=== PATIENT | female | born 1955 | race Caucasian/White ===

== ENCOUNTER 2017-12-26 09:03 | Day surgery (SDC) | payer OTHER ==
[~2017-12-26 09:03] MED LIST: Metoclopramide 10 MG/2 ML SDV IV PRN; Sodium Chloride 0.9% 10 ML Syringe FLUSH PRN
[2017-12-26] MEDS ORDERED: Propofol 1,000 MG/100 ML SDV ONE (12:45)
[2017-12-26] MEDS ORDERED: Midazolam 1 MG/ML 5 ML SDV ONE (12:45)
--- NOTE | 2017-12-26 13:48 | OR ---
DATE OF OPERATION: 12/26/2017 PREOPERATIVE DIAGNOSIS: Screening colonoscopy. POSTOPERATIVE DIAGNOSIS: Moderate to severe diverticulosis of the sigmoid colon. OPERATION: Screening colonoscopy. COMPLICATIONS: None. DRAINS: None. SPECIMENS: None. ESTIMATED BLOOD LOSS: 0. ANESTHESIA: General propofol anesthesia. INDICATION: Ms. Duenas is a high-risk patient. She has a positive family history for colon cancer and is here for a screening colonoscopy. The above-mentioned procedure was explained. The risks, benefits, and complications were explained. The patient understood and agreed, and was brought to the operating room. DESCRIPTION OF PROCEDURE: The patient was brought to the operating room, placed in a left lateral decubitus position on the operating room table. Satisfactory general propofol anesthesia was administered. We began by performing a rectal examination, which revealed some circumferential anal skin tag suggestive of external hemorrhoids. I then placed the endoscope by finger introduction into the rectum and subsequently advanced this to the level of the cecum. This was identified by the appendiceal orifice, the cecal strap and ileocecal valve. Careful evaluation of mucosa was performed on withdrawal, which revealed moderate to severe diverticulosis of the sigmoid colon with some diverticulum identified in the descending colon as well. Retroflexion in the rectum revealed some redundant mucosa suggestive of previous internal hemorrhoids. The remainder of the examination was normal. The colon was decompressed and the endoscope was withdrawn. The patient tolerated procedure well. There were no complications. Instrument count was correct. The patient was awoken in the OR and taken to the PACU for recovery. Recommend followup colonoscopy in 5 years. MICH /[id number]
[2017-12-26 18:11] VITALS: BP 146/88
== END 2017-12-26 14:12 | disposition home or self-care (01) ==
LOC: LB.SDS 09:03
PROVIDERS: ATTEND Surgery
DX: Z12.11 Encounter for screening for malignant neoplasm of colon (principal); K57.30 Diverticulosis of large intestine without perforation or abscess without bleeding; Z80.0 Family history of malignant neoplasm of digestive organs; I25.10 Atherosclerotic heart disease of native coronary artery without angina pectoris; F32.9 Major depressive disorder, single episode, unspecified; I10 Essential (primary) hypertension; E78.5 Hyperlipidemia, unspecified; G47.00 Insomnia, unspecified; Z87.891 Personal history of nicotine dependence; Z88.2 Allergy status to sulfonamides; Z88.1 Allergy status to other antibiotic agents; Z79.82 Long term (current) use of aspirin; Z79.899 Other long term (current) drug therapy; Z90.710 Acquired absence of both cervix and uterus; Z98.890 Other specified postprocedural states
CPT/HCPCS: J2250; J3490; J7040